=== PATIENT | male | born 1990 | race Hispanic/Latino ===

== ENCOUNTER 2024-06-24 21:49 | Emergency (ER) | payer OTHER ==
[~2024-06-24] VITALS: Ht 165.1 cm; Wt 79.4 kg
[2024-06-24 22:00] VITALS: TEMP 97.8
[2024-06-24 22:50] LABS: BASOPHILS # (AUTO) 0.1 (0.0-0.1); BASOPHILS % 0.6 % (0.0-1.0); EOSINOPHILS # (AUTO) 0.4 (0.0-0.4); EOSINOPHILS % 4.8 % (0.0-6.0); HEMATOCRIT 47.9 % (38.2-49.6); HEMOGLOBIN 16.5 g/dL (14.0-18.0); LYMPHOCYTES # (AUTO) 2.6 (1.0-3.2); LYMPHOCYTES % 30.5 % (18.0-39.1); MEAN CORPUSCULAR HEMOGLOBIN 32.7 pg (28-32); MEAN CORPUSCULAR HGB CONC 34.4 g/dL (31-35); MEAN CORPUSCULAR VOLUME 94.9 fL (81-99); MONOCYTES % 11.3 % (4.4-11.3); NEUTROPHILS # (AUTO) 4.5 (2.1-6.9); NEUTROPHILS % 52.6 % (38.7-80.0); PLATELET COUNT 303 x10e3/uL (140-360); RED BLOOD COUNT 5.05 x10e6/uL (4.3-5.7); RED CELL DISTRIBUTION WIDTH 12.4 % (11.7-14.4); WHITE BLOOD COUNT 8.49 x10e3/uL (4.8-10.8)
[2024-06-24 23:05] LABS: ALANINE AMINOTRANSFERASE 41 IU/L (0-55); ALBUMIN 3.9 g/dL (3.5-5.0); ALBUMIN/GLOBULIN RATIO 1.1 (0.8-2.0); ALKALINE PHOSPHATASE 64 IU/L (40-150); ANION GAP 14.9 mmol/L (8-16); BLOOD UREA NITROGEN 7 mg/dL (7-26); BUN/CREATININE RATIO 9 (6-25); CALCIUM 9.1 mg/dL (8.4-10.2); CARBON DIOXIDE 21 mmol/L (22-29); CHLORIDE 110 mmol/L (98-107); CREATINE KINASE 81 IU/L (30-200); CREATININE, SERUM 0.75 mg/dL (0.72-1.25); EST GLOMERULAR FILTRATION RATE 123 ML/MIN (>=60); GLUCOSE 89 mg/dL (74-118); POTASSIUM 3.9 mmol/L (3.5-5.1); SODIUM 142 mmol/L (136-145); TOTAL PROTEIN 7.5 g/dL (6.5-8.1)
[2024-06-24 23:22] LABS: BILIRUBIN,TOTAL 0.3 mg/dL (0.2-1.2)
[2024-06-24 23:55] LABS: TROPONIN I < 0.001 ng/mL (0-0.300)
[2024-06-25 00:13] VITALS: PULSE 74; RESP 19
[2024-06-25 00:21] VITALS: BP 109/84; PULSE 78; RESP 19; TEMP 97.8; O2SAT 99
== END 2024-06-25 00:26 | disposition home or self-care (01) ==
LOC: ER 21:57
DX: J41.0 Simple chronic bronchitis (principal); R07.89 Other chest pain; I10 Essential (primary) hypertension; F17.210 Nicotine dependence, cigarettes, uncomplicated; Z11.52 Encounter for screening for COVID-19
CPT/HCPCS: 36415; 71045; 80053; 82550; 84484; 85025; 93005; 94760; 99284; U0002

== ENCOUNTER 2024-08-17 19:54 | Emergency (ER) | payer OTHER ==
[~2024-08-17] VITALS: Ht 165.1 cm; Wt 79.4 kg
[2024-08-17 20:23] VITALS: PULSE 98; RESP 18; TEMP 97.9; O2SAT 98
== END 2024-08-17 22:00 | disposition home or self-care (01) ==
LOC: ER 20:01
DX: M25.511 Pain in right shoulder (principal); I10 Essential (primary) hypertension; F17.210 Nicotine dependence, cigarettes, uncomplicated
CPT/HCPCS: 99282

== ENCOUNTER 2024-11-09 20:27 | Emergency (ER) | payer OTHER ==
[~2024-11-09] VITALS: Ht 165.1 cm; Wt 79.8 kg
[2024-11-09 20:35] VITALS: PULSE 117; RESP 20; TEMP 98.4
[2024-11-09] MEDS: DIPHENHYDRAMINE HCL 25 MG CAP PO ONE (20:52)
[2024-11-09 21:56] VITALS: BP 140/94; PULSE 81; RESP 17; TEMP 98.2; O2SAT 100
== END 2024-11-09 21:54 | disposition home or self-care (01) ==
LOC: ER 20:43
DX: R21 Rash and other nonspecific skin eruption (principal); I10 Essential (primary) hypertension
CPT/HCPCS: 99283